=== PATIENT | male | born 1990 ===

== ENCOUNTER 2023-11-08 20:49 | Emergency (ER) | payer SELFPAY ==
[~2023-11-08] VITALS: Ht 182.9 cm; Wt 88.3 kg
[2023-11-08] MEDS ORDERED: ODEF1TAB PO (21:37)
[2023-11-09 01:48] VITALS: BP 148/96; TEMP 97.8; O2SAT 100
== END 2023-11-09 03:39 | disposition left against medical advice (07) ==
LOC: M ED 20:49
DX: Z53.21 Procedure and treatment not carried out due to patient leaving prior to being seen by health care provider (principal)